=== PATIENT | male | born 1980 | race Caucasian/White ===

== ENCOUNTER 2017-06-08 11:03 | Day surgery (SDC) | payer BC ==
[~2017-06-08] VITALS: Ht 182.9 cm; Wt 95.2 kg
[~2017-06-08 11:03] MED LIST: ALEVE220 MG PO; FLONASE16 G1 BOTH NARES
[2017-06-08 11:44] VITALS: BP 127/89
[2017-06-08] MEDS ORDERED: OXYCODONE-APAP1 EACH PO (14:13)
[2017-06-08] MEDS ORDERED: DIAZEPAM10 MG PO (14:13)
[2017-06-08] MEDS ORDERED: MOTRIN600 MG PO (14:13)
[2017-06-08 15:15] VITALS: BP 118/80
[2017-06-08 16:15] VITALS: BP 128/74
[2017-06-08 17:16] VITALS: BP 124/85
== END 2017-06-08 17:24 | disposition home or self-care (01) ==
LOC: SDC 11:03
DX: M50.122 Cervical disc disorder at C5-C6 level with radiculopathy (principal); M79.601 Pain in right arm
CPT/HCPCS: 72040; 76000; C1713; J0131; J0690; J1100; J1170; J2250; J2405; J2710; J3010